=== PATIENT | female | born 1995 | race Hispanic/Latino ===

== ENCOUNTER 2020-01-09 13:43 | Outpatient (CLI) | payer BC ==
[2020-01-09 14:10] LABS: BHCG - Serum Negative (NEGATIVE); Pregs Control Background? CLEAR/WHITE (CLR/WHITE); Pregs Control Bar Appear? YES (CONTROL BAR)
--- NOTE | 2020-01-09 15:03 | RAD ---
Exam: [facility] HISTORY: Difficulty getting . COMPARISON: None FINDINGS: Initial hand bulldozer pelvic radiograph is normal in appearance. No osseous abnormalities Endometrium was opacified in a retrograde fashion. There are no filling defects. Contrast opacifies t he left and right fallopian tube. Free spillage in the left and right hemipelvis. Lower uterine segment does not demonstrate any abnormality. IMPRESSION: Patent left and right fallopian tube. Free spillage in the left and right hemicord pelvis .
== END 2020-01-09 13:44 | disposition home or self-care (01) ==
LOC: RAD 13:43
PROVIDERS: ATTEND Family Medicine
DX: N92.6 Irregular menstruation, unspecified (principal)
CPT/HCPCS: 36415; 58340; 74740; 84703

== ENCOUNTER 2020-02-03 08:34 | Outpatient (CLI) | payer BC ==
--- NOTE | 2020-02-03 09:31 | ULT ---
Pelvic sonogram transabdominal and transvaginal imaging HISTORY: Pelvic pain. FINDINGS: Urinary bladder is unremarkable. Uterus has a homogeneous echotexture and is 9.65 cm length . Endometrium measures up to 1.3 cm, correlating with late stage of menstrual cycle. No free fluid. Each ovary has a normal appearance and demonstrates good color and spectral Doppler flow. IMPRESSION : No abnormalities are demonstrated.
== END 2020-02-03 08:35 | disposition home or self-care (01) ==
LOC: BICULT 08:34
PROVIDERS: ATTEND Family Medicine
DX: R10.2 Pelvic and perineal pain (principal)
CPT/HCPCS: 76856

== ENCOUNTER 2022-07-22 13:57 | Outpatient (CLI) | payer BC | END 2022-07-22 13:58 | disposition home or self-care (01) | LOC: BICRAD 13:57 | PROVIDERS: ATTEND Nurse Practitioner Family | DX: R10.2 Pelvic and perineal pain (principal) | CPT/HCPCS: 74018 ==